=== PATIENT | male | born 1955 | race Caucasian/White ===

== ENCOUNTER → 2019-05-30 12:47 | Outpatient (BNVA) | payer MEDICARE, SELFPAY | PROVIDERS: Family Provider Family Medicine; PCP Family Medicine; Visit Provider Family Medicine | DX: M25.552 Pain in left hip (principal); M54.5 Low back pain; G89.29 Other chronic pain | CPT/HCPCS: 80307; 80373 ==

== ENCOUNTER → 2019-08-16 09:22 | Outpatient (BNVA) | payer MEDICARE, SELFPAY | PROVIDERS: Family Provider Family Medicine; PCP Family Medicine; Referring Provider Family Medicine; Visit Provider Anesthesiology Pain Medicine | DX: G89.29 Other chronic pain (principal); M47.816 Spondylosis without myelopathy or radiculopathy, lumbar region; M51.36 Other intervertebral disc degeneration, lumbar region; M25.552 Pain in left hip; Z98.890 Other specified postprocedural states; Z79.891 Long term (current) use of opiate analgesic | CPT/HCPCS: 99204; 99205 ==

== ENCOUNTER → 2019-08-23 09:33 | Outpatient (BNVA) | payer MEDICARE, SELFPAY | PROVIDERS: Family Provider Family Medicine; PCP Family Medicine; Visit Provider Anesthesiology Pain Medicine | DX: G89.29 Other chronic pain (principal); M25.552 Pain in left hip; M54.5 Low back pain | CPT/HCPCS: 20610; 77003; J1030; J2001; J3490 ==

== ENCOUNTER 2019-09-06 12:49 | Outpatient (CLI) | payer MEDICARE, SELFPAY ==
--- NOTE | 2019-09-06 13:00 | MR_ITS ---
WS: [id number] MRI LUMBAR SPINE NONCONTRAST HISTORY: M51.36 Other intervertebral disc degeneration, lumbar region, pain down LEFT leg. COMPARISON: 06/22/2010 TECHNIQUE: Sagittal and axial multisequence imaging is submitted. Advanced degenerative changes in the cervical spine and moderate in the thoracic spine. No signal abn ormality within the cord. Straightening of the normal lumbar lordosis. There is very slight RIGHT convex curvature of the lumba r spine. Advanced degenerative disc disease and degeneration throughout the lumbar spine. Osteophytes fatty me tamorphosis in the vertebral bodies. No fracture. Conus terminates normally at L1. L1-L2: Diffuse osteophytic ridging and disc bulging. Effacement of fat in the LEFT foramen. Mild encr oachment upon the LEFT lateral thecal sac by facet osteophytes. Severe LEFT foraminal stenosis and mi ld on the RIGHT and mild central stenosis. Mild bilateral subarticular recess narrowing. Significant progression since the prior study. L2-L3: Diffuse annular disc bulging and osteophytic ridging. Marked facet and ligamentum flavum hyper trophy. There is near complete effacement of CSF centrally. Severe central and bilateral subarticular recess stenosis and mild bilateral foraminal stenosis. Significant progression since the prior study . L3-L4: Diffuse osteophytic ridging and disc bulging with ligamentum flavum hypertrophy. Moderate cent ral stenosis. Severe bilateral subarticular recess and foraminal stenosis. Moderate progression since the prior study. L4-L5: Diffuse annular disc bulging and osteophytic ridging. Marked facet and ligamentum flavum arthr itis. Disc osteophyte complex extends into the LEFT paracentral and subarticular recess and foramen. New since the prior study. Significant mass effect upon the LEFT lateral thecal sac and displacement of the L5 nerve root. Complete effacement of fat in the LEFT foramen with near complete effacement on the RIGHT. Significant progression of disease. L5-S1: No stenosis. Bilateral renal cysts. MR/MR lumbar spine wo con* [id number] IMPRESSION: 1. Multilevel advanced degenerative changes throughout the lumbar spine and st enoses. Significant progression at multiple levels since 2010. 2. Disc osteophyte complex at L4-5 extends into the LEFT paracentral, subartic ular recess and foramen with significant stenosis. Severe bilateral foraminal s tenosis, LEFT greater than RIGHT. 3. Severe bilateral subarticular recess and foraminal stenosis with moderate c entral stenosis at L3-4. 4. Severe central and bilateral subarticular recess stenosis at L2-3. 5. Severe LEFT foraminal stenosis at L1-2 with mild bilateral subarticular rec ess stenosis.
== END 2019-09-06 12:50 | disposition home or self-care (01) ==
LOC: RADSHAW 12:54
PROVIDERS: PCP Family Medicine; Visit Provider Anesthesiology Pain Medicine
DX: G89.29 Other chronic pain (principal); M25.552 Pain in left hip; M16.12 Unilateral primary osteoarthritis, left hip; M25.562 Pain in left knee; M47.816 Spondylosis without myelopathy or radiculopathy, lumbar region; M51.36 Other intervertebral disc degeneration, lumbar region; Z98.890 Other specified postprocedural states; Z79.891 Long term (current) use of opiate analgesic
CPT/HCPCS: 72148; 99213; 99214

== ENCOUNTER → 2019-09-10 11:04 | Outpatient (BNVA) | payer MEDICARE, SELFPAY | PROVIDERS: PCP Family Medicine; Visit Provider Anesthesiology Pain Medicine | DX: M17.12 Unilateral primary osteoarthritis, left knee (principal) | CPT/HCPCS: 20610; J2001; J7325 ==

== ENCOUNTER → 2019-09-20 10:25 | Outpatient (BNVA) | payer MEDICARE, SELFPAY | PROVIDERS: PCP Family Medicine; Visit Provider Family Medicine | DX: R35.1 Nocturia (principal); Z13.6 Encounter for screening for cardiovascular disorders | CPT/HCPCS: 80053; 80061; 84153; 85025 ==

== ENCOUNTER → 2021-03-15 11:00 | Outpatient (BNVA) | payer MEDICARE, SELFPAY | PROVIDERS: PCP Family Medicine; Visit Provider Family Medicine | DX: R68.82 Decreased libido (principal); R35.1 Nocturia; Z13.6 Encounter for screening for cardiovascular disorders | CPT/HCPCS: 80053; 80061; 84153; 84403; 84443; 85025 ==

== ENCOUNTER → 2021-03-29 10:39 | Outpatient (BNVA) | payer MEDICARE, SELFPAY | PROVIDERS: PCP Family Medicine; Referring Provider Family Medicine; Visit Provider Anesthesiology Pain Medicine | DX: G89.29 Other chronic pain (principal); M51.36 Other intervertebral disc degeneration, lumbar region; M47.816 Spondylosis without myelopathy or radiculopathy, lumbar region; M16.12 Unilateral primary osteoarthritis, left hip; M79.605 Pain in left leg; Z98.890 Other specified postprocedural states; Z79.891 Long term (current) use of opiate analgesic | CPT/HCPCS: 99214 ==

== ENCOUNTER → 2021-04-08 12:31 | Outpatient (BNVA) | payer MEDICARE, SELFPAY | PROVIDERS: PCP Family Medicine; Visit Provider Anesthesiology Pain Medicine | DX: G89.29 Other chronic pain (principal); M51.36 Other intervertebral disc degeneration, lumbar region; M47.816 Spondylosis without myelopathy or radiculopathy, lumbar region; M25.552 Pain in left hip; Z98.890 Other specified postprocedural states; Z79.891 Long term (current) use of opiate analgesic | CPT/HCPCS: 62323; J1040; J3490 ==

== ENCOUNTER → 2021-04-22 10:46 | Outpatient (BNVA) | payer MEDICARE, SELFPAY | PROVIDERS: PCP Family Medicine; Visit Provider Anesthesiology Pain Medicine | DX: G89.29 Other chronic pain (principal); M51.36 Other intervertebral disc degeneration, lumbar region; M47.816 Spondylosis without myelopathy or radiculopathy, lumbar region; M16.12 Unilateral primary osteoarthritis, left hip; M79.605 Pain in left leg; Z98.890 Other specified postprocedural states; Z79.891 Long term (current) use of opiate analgesic | CPT/HCPCS: 99214 ==

== ENCOUNTER → 2021-09-20 09:13 | Outpatient (BNVA) | payer MEDICARE, SELFPAY | PROVIDERS: PCP Family Medicine; Visit Provider Family Medicine | DX: G89.29 Other chronic pain (principal); M25.552 Pain in left hip; R06.00 Dyspnea, unspecified; M47.816 Spondylosis without myelopathy or radiculopathy, lumbar region; R53.83 Other fatigue; E78.5 Hyperlipidemia, unspecified | CPT/HCPCS: 80048 ==

== ENCOUNTER → 2022-03-21 09:30 | Outpatient (BNVA) | payer MEDICARE, SELFPAY | PROVIDERS: PCP Family Medicine; Visit Provider Family Medicine | DX: E78.5 Hyperlipidemia, unspecified (principal); R35.1 Nocturia; R06.00 Dyspnea, unspecified; M25.552 Pain in left hip | CPT/HCPCS: 80053; 80061; 84153; 85025 ==

== ENCOUNTER → 2022-09-19 10:16 | Outpatient (BNVA) | payer MEDICARE, SELFPAY | PROVIDERS: PCP Family Medicine; Visit Provider Family Medicine | DX: E78.5 Hyperlipidemia, unspecified (principal); M25.552 Pain in left hip | CPT/HCPCS: 80053 ==

== ENCOUNTER 2022-11-28 21:09 | Emergency (ER) | payer MEDICARE, SELFPAY ==
[2022-11-28 21:13] VITALS: BP 97/53; PULSE 80; RESP 16; TEMP 36.4; O2SAT 93; BMI 26.6
--- NOTE | 2022-11-28 21:46 | CTR_ITS ---
PROCEDURE INFORMATION: Exam: CT Head Without Contrast Exam date and time: 11/28/2022 10:55 PM Age: 67 years old Clinical indication: Injury or trauma; Blunt trauma (contusions or hematomas); Consciousness not specified; Injury date: Today; Injury details: Fall from roof top , patient is alert but unsure whether he lost consciousness, denies head and neck pain, but complains of right rib pain as well as right hip pain TECHNIQUE: Imaging protocol: Computed tomography of the head without contrast. Radiation optimization: All CT scans at this facility use at least one of these dose optimization techniques: automated exposure control; mA and/or kV adjustment per patient size (includes targeted exams where dose is matched to clinical indication); or iterative reconstruction. REPORTING DATA: Count of CT and Cardiac NM exams in prior 12 months: This patient has received 0 known CTs and 0 known cardiac nuclear medicine studies in the 12 months prior to the current study. COMPARISON: No relevant prior studies available. RADIATION DOSE METRICS: Total DLP (mGy-cm): 1168.58 FINDINGS: Brain: No acute intracranial hemorrhage, abnormal extra-axial fluid collection, mass effect, or midline shift. Minimal to mild periventricular and subcortical white matter hypodensities compatible with changes of minimal to mild burden chronic small-vessel disease. Cerebral ventricles: The ventricular system is within normal limits of variation for the patient's age. Paranasal sinuses: There is no acute sinusitis. Mastoid air cells: Visualized mastoid air cells are well aerated. Bones/joints: No acute fracture. Soft tissues: Grossly unremarkable. Vasculature: Atheromatous changes are seen within the bilateral carotid siphons. Other findings: . CT/CT head wo con* [id number] IMPRESSION: 1. No acute intracranial findings. 2. Other chronic/incidental findings as described above.
--- NOTE | 2022-11-28 21:46 | CTR_ITS ---
PROCEDURE INFORMATION: Exam: CT Cervical Spine Without Contrast Exam date and time: 11/28/2022 10:58 PM Age: 67 years old Clinical indication: Injury or trauma; Blunt trauma; Injury details: Fall from roof top , patient is alert but unsure whether he lost consciousness, denies head and neck pain, but complains of right rib pain as well as right hip pain TECHNIQUE: Imaging protocol: Computed tomography of the cervical spine without contrast. Radiation optimization: All CT scans at this facility use at least one of these dose optimization techniques: automated exposure control; mA and/or kV adjustment per patient size (includes targeted exams where dose is matched to clinical indication); or iterative reconstruction. REPORTING DATA: Count of CT and Cardiac NM exams in prior 12 months: This patient has received 0 known CTs and 0 known cardiac nuclear medicine studies in the 12 months prior to the current study. COMPARISON: CT head wo con* [id number] 11/28/2022 10:55 PM RADIATION DOSE METRICS: Total DLP (mGy-cm): 198.07 FINDINGS: Bones/joints: Craniocervical articulation is normal. There is normal vertebral body alignment. Severe diffuse disc space narrowing. There are normal vertebral body heights. The dens is intact. The lateral masses of C1 are symmetric. No fracture. Prevertebral and retropharyngeal spaces: Atlantodental interval and prevertebral soft tissues are normal. Lungs: Lung apices are normal. Soft tissues: Unremarkable. CT/CT cervical spin wo con* [id number] IMPRESSION: No fracture.
--- NOTE | 2022-11-28 21:46 | CTR_ITS ---
PROCEDURE INFORMATION: Exam: CT Chest With Contrast; Diagnostic Exam date and time: 11/28/2022 11:03 PM Age: 67 years old Clinical indication: Injury or trauma; Rlq; Blunt trauma (contusions or hematomas); Injury details: Fall from roof top , patient is alert but unsure whether he lost consciousness, denies head and neck pain, but complains of right rib pain as well as right hip pain TECHNIQUE: Imaging protocol: Diagnostic computed tomography of the chest with contrast. Radiation optimization: All CT scans at this facility use at least one of these dose optimization techniques: automated exposure control; mA and/or kV adjustment per patient size (includes targeted exams where dose is matched to clinical indication); or iterative reconstruction. Contrast material: OMNI 350; Contrast volume: 100 ml; Contrast route: INTRAVENOUS (IV); REPORTING DATA: Count of CT and Cardiac NM exams in prior 12 months: This patient has received 0 known CTs and 0 known cardiac nuclear medicine studies in the 12 months prior to the current study. COMPARISON: CT abdomen pelvis w con* [id number] 09/15/2018 8:22 PM RADIATION DOSE METRICS: Total DLP (mGy-cm): 1307.04 FINDINGS: Lungs: There is bibasilar atelectasis. Pleural spaces: Unremarkable. No pneumothorax. No pleural effusion. Heart: Unremarkable. No cardiomegaly. No pericardial effusion. Lymph nodes: Unremarkable. No enlarged lymph nodes. Vasculature: Unremarkable. No aortic aneurysm. Bones/joints: Fracture fixation hardware left clavicle. Right posterior 8th rib fracture. Soft tissues: Unremarkable. PROCEDURE INFORMATION: Exam: CT Abdomen And Pelvis With Contrast Exam date and time: 11/28/2022 11:03 PM Age: 67 years old Clinical indication: Injury or trauma; Rlq; Blunt trauma (contusions or hematomas); Injury details: Fall from roof top , patient is alert but unsure whether he lost consciousness, denies head and neck pain, but complains of right rib pain as well as right hip pain TECHNIQUE: Imaging protocol: Computed tomography of the abdomen and pelvis with contrast. Radiation optimization: All CT scans at this facility use at least one of these dose optimization techniques: automated exposure control; mA and/or kV adjustment per patient size (includes targeted exams where dose is matched to clinical indication); or iterative reconstruction. Contrast material: OMNI 350; Contrast volume: 100 ml; Contrast route: INTRAVENOUS (IV); REPORTING DATA: Count of CT and Cardiac NM exams in prior 12 months: This patient has received 0 known CTs and 0 known cardiac nuclear medicine studies in the 12 months prior to the current study. COMPARISON: CT abdomen pelvis w con* [id number] 09/15/2018 8:22 PM RADIATION DOSE METRICS: Total DLP (mGy-cm): 1307.04 FINDINGS: Lungs: The lung bases are clear. No effusion Liver: There are multiple hepatic calcified granulomata consistent with previous granulomatous disease. Gallbladder and bile ducts: No wall thickening, pericholecystic fluid or stones. Pancreas: Normal. No ductal dilation. Spleen: There are multiple calcified splenic granulomata . Adrenal glands: Normal. No mass. Kidneys and ureters: There are multiple bilateral renal cysts, largest measures 2.9 cm. New perigraft Stomach and bowel: Diverticulosis without diverticulitis. Appendix: No evidence of appendicitis. Intraperitoneal space: Unremarkable. No free air. No significant fluid collection. Vasculature: Unremarkable. No abdominal aortic aneurysm. Lymph nodes: Unremarkable. No enlarged lymph nodes. Urinary bladder: Unremarkable as visualized. Reproductive: Unremarkable as visualized. Bones/joints: Left hip arthroplasty is in place. No evidence of loosening. Left superior pubic ramus fracture. Comminuted right inferior pubic ramus fracture. Severe diffuse disc space narrowing. Comminuted right acetabular fracture with mild acetabular protrusion into the pelvis and small associated pelvic sidewall hematoma. Fracture involves the anterior and posterior isaac of the acetabulum No active hemorrhage. Comminuted, minimally displaced and angulated right iliac wing fracture. Soft tissues: Unremarkable. CT/CT chest abdpel w/*[id number] IMPRESSION: Right posterior 8th rib fracture. IMPRESSION: 1. Comminuted right acetabular fracture with mild acetabular protrusion into the pelvis and small associated pelvic sidewall hematoma. Fracture involves the anterior and posterior isaac of the acetabulum No active hemorrhage. 2. Diverticulosis without diverticulitis. 3. Left superior pubic ramus fracture. 4. Comminuted right inferior pubic ramus fracture. 5. Comminuted, minimally displaced and angulated right iliac wing fracture. COMMENTS: Consistent with the [employer]'s Incidental Findings Committee white paper (J Am Fiona Radiol 2018): Any incidental renal lesion less than 1 cm or classified as too small to characterize, or any incidental cystic renal lesion characterized as simple-appearing, is likely benign. No follow-up imaging is recommended for these lesions per consensus recommendations based on imaging criteria.
[2022-11-28 22:03] LABS: Basophils # 0.1 10^3/uL (0.0-0.1); Basophils % 0.3 %; Hematocrit 39.4 % (37-53); Lymphocytes % 4.4 %; Mean Corpuscular HGB Conc 33.8 g/dL (30-55); Mean Corpuscular Hemoglobin 31.4 pg (27-33); Mean Corpuscular Volume 92.9 fl (82-101); Mean Platelet Volume 9.1 fL (7.4-10.4); Monocytes # 1.3 10^3/uL (0.2-0.9); Monocytes % 5.7 %; Neutrophils # 19.56 10^3/uL (1.8-7.7); Neutrophils % 88.6 %; Nucleated Red Blood Cells % 0 %; Platelet Count 221 10^3/cmm (157-399); Red Blood Count 4.24 10^6/uL (3.85-5.65); Red Cell Distribution Width 12.8 % (12.1-15.1); White Blood Count 22.08 10^3/uL (3.29-11.43)
[2022-11-28 22:24] LABS: Alanine Aminotransferase 136 U/L (0-41); Albumin Level 4.6 g/dL (3.5-5.2); Alkaline Phosphatase 83 U/L (40-130); Aspartate Amino Transferase 185 U/L (0-40); Blood Urea Nitrogen 34 mg/dL (8-23); Calcium 9.2 mg/dL (8.5-10.5); Carbon Dioxide 25 mmol/L (22-29); Chloride 104 mmol/L (98-107); Globulin 2.8 g/dL (1.3-4.6); Glomerular Filtration Rate 50.2 mL/min (90-130); Glucose 158 mg/dL (65-115); Osmolality Calculated 301 mOsm/kg (285-295); Sodium 140 mmol/L (136-145); Total Bilirubin 0.5 mg/dL (0.15-1.2); Total Protein 7.4 g/dL (6.6-8.7)
[2022-11-28 22:27] VITALS: BP 109/73; PULSE 76; O2SAT 100
[2022-11-28 22:31] VITALS: BP 113/69; PULSE 75; O2SAT 98
--- NOTE | 2022-11-28 22:32 | W.ED.FALL ---
Documented by User: Skinny Hernandez MD 11/29/22 10:50 HPI - Fall General: Chief Complaint: Fall Stated Complaint: pain in right hip, right lower back Time Seen by Provider: 11/28/22 21:31 History of Present Illness: 67-year-old male brought to emergency room via EMS after falling from a roof top. Patient said that he fell from approximately 9 feet landing on his back. Patient further reveals that he passed out for about 30 minutes and was found by his . Upon present emergency room patient denies any headache or neck pain but patient was placed in c-collar by EMS. Patient is complaining of right upper quadrant pain and rib cage pain with the right lower back pain and hip pain. He described the pain as sharp sensation with severity of 7 out of 10 especially with palpation and deep breathing. She denies any shortness of breath, cough, coughing up blood or vomiting blood. No loss of bowel or bladder dysfunction at this time. Denies any blurry vision or change in vision. No numbness or tingling to the upper or lower extremities. Fall from: from height (distance) (9 ft) Fall witnessed: no Loss of consciousness: Yes Length of LOC: minutes(s) (unsure ) Location of injury: chest, back and abdomen Associated symptoms-after fall: Reports chest pain; Denies difficulty walking, headache(s), lightheadedness or neck pain Review of Systems General: Reports: 10 or more systems reviewed and unremarkable except in HPI and below Card: Reports: chest pain and other (Rib cage pain on the right side); Denies: palpitations, irregular heart rhythm, edema, swelling of feet/ankles or lightheadedness Musc: Reports: back pain, joint pain and other (Right hip pain); Denies: neck pain Skin/Breast: Denies: rash, pruritus or erythema Neuro: Denies: headache(s), numbness in extremities, weakness in extremities, sensory changes, lack of coordination, difficulty walking, behavioral changes, Slurred speech present, difficulty communicating thoughts or seizure-like activity Prudencio/Lymph: Reports: other (Denies any blood thinner medication); Denies: easy bruising, easy bleeding, petechiae or purpura [facility] ED PFSH: Medical History Chronic low back pain History of broken collarbone Left hip pain Surgical History H/O knee surgery H/O total knee replacement Left History of back surgery History of left hip replacement Hx of arthroscopy of left knee Social History Smoking and tobacco status: never smoked Alcohol intake: never Substance/Drug Use: never Lives independently: Yes Physical Exam Const: COMMON NORMALS: no acute distress, average body habitus, patient oriented x3, no limitations, healthy appearing, alert and well nourished Neck/C-Spine: COMMON NORMALS: no JVD GENERAL: Yes normal visual inspection, Yes trachea midline, No anterior neck swelling, No lymphadenopathy, No tracheal deviation and No tracheostomy present CERVICAL SPINE: Yes normal cervical lordosis, No step off deformity, No Paracervical muscle tenderness, Yes collar present and No Cervical spine scars present Chest: COMMONS NORMALS: normal inspection of the chest CHEST: No mass, Yes tenderness rib; no clavicular xxx and no sternal xxx, No Ecchymosis present, No wounds and No Surgical scars present (Chest) Resp: COMMON NORMALS: normal respiratory effort, No retractions, No use of accessory muscles, clear to auscultation bilaterally and percussion normal EFFORT & INSPECTION: Yes able to speak in complete sentences AUSCULTATION: clear to auscultation bilaterally PERCUSSION: percussion normal Cardio: COMMON NORMALS: no JVD, regular rate, regular rhythm, S1 normal heart sound present, S2 normal heart sound present, No gallops present (Cardio), No clicks present (Cardio), No murmurs present (Cardio), No rub (Cardio) and Peripheral pulses 2+ throughout RATE: regular rate RHYTHM: regular rhythm HEART SOUNDS: S1 normal heart sound present and S2 normal heart sound present PERIPHERAL PULSES: Peripheral pulses 2+ throughout GI: COMMON NORMALS: Soft to palpation and No hepatosplenomegaly present PALPATION: Yes Soft to palpation, Yes Tenderness to palpation present (GI) Details: RUQ, Yes No hepatosplenomegaly present, No Hepatosplenomegaly present, No Hepatomegaly present and No Splenomegaly present : COMMON NORMALS: Yes no CVA tenderness BLADDER/KIDNEY EXAM: Yes no CVA tenderness Back/Pelvis: COMMON NORMALS: no CVA tenderness, thoracic and lumbar spine normal to inspection, no thoracic nor lumbar tenderness, thoraco-lumbar ROM normal and straight leg raise negative bilaterally PELVIS: Yes buttocks normal, Yes tenderness over symphysis pubis and No iliac crest elevation Extremity: COMMON NORMALS: normal to inspection RIGHT LOWER EXTREMITY: Yes hip joint Right hip: Yes inspection, Yes palpation (Some palpation on the lateral aspect of the right hip but no obvious deform), Yes ROM (Some pain with range of motion but no significant rotation or shortness of ) and Yes neurovascular exam (Patient with intact sensation and palpable pulses from the femoral all the ) Neuro: COMMON NORMALS: patient oriented x3 SENSORIUM/ORIENTATION: Yes alert Skin: COMMON NORMALS: no rashes or lesions noted, no wounds, turgor normal, no jaundice, no petechiae and no mottling GENERAL SKIN EXAM: no rashes or lesions noted and turgor normal Course Vital Signs: Vital signs: Vital Signs Temperature 97.6 F 11/28/22 21:13 Pulse Rate 72 11/29/22 02:10 Respiratory Rate 15 11/29/22 00:30 Blood Pressure 121/70 11/29/22 02:10 Pulse Oximetry 96 11/29/22 02:10 Oxygen Delivery Me thod Nasal Cannula 11/29/22 01:01 Oxygen Flow Rate 2 11/29/22 01:01 MDM - Fall Medical Decision Making Patient made comfortable emergency room. C-collar in place and patient was taken to CT for CT head neck chest abdomen pelvis. He was given IV pain medication. Care transferred to pending CT results. CT head reviewed and no acute finding on CT head. Differential Diagnosis Likely dislocation of shoulder region, fracture of wrist, compression fracture, concussion with loss of consciousness and concussion without loss of consciousness Lab Data 11/28/22 21:57 11/28/22 21:57 Radiology Impressions Cervical Spine CT 11/28/22 21:46 IMPRESSION: No fracture. Chest/Abdomen/Pelvis CT 11/28/22 21:46 IMPRESSION: Right posterior 8th rib fracture. IMPRESSION: 1. Comminuted right acetabular fracture with mild acetabular protrusion into the pelvis and small associated pelvic sidewall hematoma. Fracture involves the anterior and posterior isaac of the acetabulum No active hemorrhage. 2. Diverticulosis without diverticulitis. 3. Left superior pubic ramus fracture. 4. Comminuted right inferior pubic ramus fracture. 5. Comminuted, minimally displaced and angulated right iliac wing fracture. COMMENTS: Consistent with the [employer]'s Incidental Findings Committee white paper (J Am Fiona Radiol 2018): Any incidental renal lesion less than 1 cm or classified as too small to characterize, or any incidental cystic renal lesion characterized as simple-appearing, is likely benign. No follow-up imaging is recommended for these lesions per consensus recommendations based on imaging criteria. Head CT 11/28/22 21:46 IMPRESSION: 1. No acute intracranial findings. 2. Other chronic/incidental findings as described above. Laboratory Results WBC 22.08 10^3/uL (3.29-11.43) H 11/28/22 21:57 RBC 4.24 10^6/uL (3.85-5.65) 11/28/22 21:57 Hgb 13.30 g/dL (11.27-16.99) 11/28/22 21:57 Hct 39.4 % (37-53) 11/28/22 21:57 MCV 92.9 fl (82-101) 11/28/22 21:57 MCH 31.4 pg (27-33) 11/28/22 21:57 MCHC 33.8 g/dL (30-55) 11/28/22 21:57 RDW 12.8 % (12.1-15.1) 11/28/22 21:57 Plt Count 221 10^3/cmm (157-399) 11/28/22 21:57 MPV 9.1 fL (7.4-10.4) 11/28/22 21:57 Neut % (Auto) 88.6 % 11/28/22 21:57 Lymph % (Auto) 4.4 % 11/28/22 21:57 [place] % (Auto) 5.7 % 11/28/22 21:57 Eos % (Auto) 0.0 % 11/28/22 21:57 Baso % (Auto) 0.3 % 11/28/22 21:57 Neut # (Auto) 19.56 10^3/uL (1.8-7.7) H 11/28/22 21:57 Lymph # (Auto) 1.0 10^3/uL (0.8-4.8) 11/28/22 21:57 [place] # (Auto) 1.3 10^3/uL (0.2-0.9) H 11/28/22 21:57 Eos # (Auto) 0.0 10^3/uL (0.0-0.8) 11/28/22 21:57 Baso # (Auto) 0.1 10^3/uL (0.0-0.1) 11/28/22 21:57 Nucleated RBC % (auto) 0 % 11/28/22 21:57 Nucleated RBCs # 0.0 /100WBC 11/28/22 21:57 PT 14.60 SECONDS (12.1-14.9) 11/29/22 00:50 INR 1.10 (0.8-1.2) 11/29/22 00:50 APTT 27.9 SECONDS (23.9-36.7) 11/29/22 00:50 Sodium 140 mmol/L (136-145) 11/28/22 21:57 Potassium 5.0 mmol/L (3.5-5.1) 11/28/22 21:57 Chloride 104 mmol/L (98-107) 11/28/22 21:57 Carbon Dioxide 25 mmol/L (22-29) 11/28/22 21:57 Anion Gap 16.0 (5-19) 11/28/22 21:57 BUN 34 mg/dL (8-23) H 11/28/22 21:57 Creatinine 1.4 mg/dL (0.7-1.2) H 11/28/22 21:57 GFR Calculation 50.2 mL/min (90-130) L 11/28/22 21:57 Glucose 158 mg/dL (65-115) H 11/28/22 21:57 Calculated Osmolality 301 mOsm/kg (285-295) H 11/28/22 21:57 Calcium 9.2 mg/dL (8.5-10.5) 11/28/22 21:57 Total Bilirubin 0.5 mg/dL (0.15-1.2) 11/28/22 21:57 AST 185 U/L (0-40) H 11/28/22 21:57 ALT 136 U/L (0-41) H 11/28/22 21:57 Alkaline Phosphatase 83 U/L (40-130) 11/28/22 21:57 Total Protein 7.4 g/dL (6.6-8.7) 11/28/22 21:57 Albumin 4.6 g/dL (3.5-5.2) 11/28/22 21:57 Globulin 2.8 g/dL (1.3-4.6) 11/28/22 21:57 Blood Type B Positive 11/29/22 00:50 Rho(D) Type Positive 11/29/22 00:50 Antibody Screen Negative 11/29/22 00:50 XR interpretation done by ED provider, pending radiology final review Discharge Plan Discharge Patient Disposition: Xfer Short-Term Hosp Clinical Impression: Trauma Multiple closed pelvic fractures with disruption of pelvic la posta Qualifiers: Encounter type: initial encounter Qualified Code(s): S32.810A - Multiple fractures of pelvis with stable disruption of pelvic ring, initial encounter for closed fracture Closed rib fracture Qualifiers: Encounter type: initial encounter Rib fracture type: single rib Laterality: right Qualified Code(s): S22.31XA - Fracture of one rib, right side, initial encounter for closed fracture Condition: Stable Referrals: Casie Marlow DO [Primary Care Provider] - Coding Level of Care Code ED Medical Affairs Leader for Chg Fwd Documented by User: Joao Enriquez DO 11/29/22 01:45 HPI - Fall General: Chief Complaint: Fall Stated Complaint: pain in right hip, right lower back Time Seen by Provider: 11/28/22 21:31 PFSH ED PFSH: Medical History Chronic low back pain History of broken collarbone Left hip pain Surgical History H/O knee surgery H/O total knee replacement Left History of back surgery History of left hip replacement Hx of arthroscopy of left knee Social History Smoking and tobacco status: never smoked Alcohol intake: never Substance/Drug Use: never Lives independently: Yes Course Vital Signs: Vital signs: Vital Signs Temperature 97.6 F 11/28/22 21:13 Pulse Rate 72 11/29/22 02:10 Respiratory Rate 15 11/29/22 00:30 Blood Pressure 121/70 11/29/22 02:10 Pulse Oximetry 96 11/29/22 02:10 Oxygen Delivery Me thod Nasal Cannula 11/29/22 01:01 Oxygen Flow Rate 2 11/29/22 01:01 MDM - Fall Medical Decision Making Patient made comfortable emergency room. C-collar in place and patient was taken to CT for CT head neck chest abdomen pelvis. He was given IV pain medication. Care transferred to pending CT results. CT head reviewed and no acute finding on CT head. Upon receiving the patient in transfer CT scan of the chest abdomen pelvis came back with multiple fractures. [facility] was called and Dr. Mars the ER doc it was an accepting physician. Lab Data 11/28/22 21:57 11/28/22 21:57 Radiology Impressions Cervical Spine CT 11/28/22 21:46 IMPRESSION: No fracture. Chest/Abdomen/Pelvis CT 11/28/22 21:46 IMPRESSION: Right posterior 8th rib fracture. IMPRESSION: 1. Comminuted right acetabular fracture with mild acetabular protrusion into the pelvis and small associated pelvic sidewall hematoma. Fracture involves the anterior and posterior isaac of the acetabulum No active hemorrhage. 2. Diverticulosis without diverticulitis. 3. Left superior pubic ramus fracture. 4. Comminuted right inferior pubic ramus fracture. 5. Comminuted, minimally displaced and angulated right iliac wing fracture. COMMENTS: Consistent with the [employer]'s Incidental Findings Committee white paper (J Am Fiona Radiol 2018): Any incidental renal lesion less than 1 cm or classified as too small to characterize, or any incidental cystic renal lesion characterized as simple-appearing, is likely benign. No follow-up imaging is recommended for these lesions per consensus recommendations based on imaging criteria. Head CT 11/28/22 21:46 IMPRESSION: 1. No acute intracranial findings. 2. Other chronic/incidental findings as described above. Laboratory Results WBC 22.08 10^3/uL (3.29-11.43) H 11/28/22 21:57 RBC 4.24 10^6/uL (3.85-5.65) 11/28/22 21:57 Hgb 13.30 g/dL (11.27-16.99) 11/28/22 21:57 Hct 39.4 % (37-53) 11/28/22 21:57 MCV 92.9 fl (82-101) 11/28/22 21:57 MCH 31.4 pg (27-33) 11/28/22 21:57 MCHC 33.8 g/dL (30-55) 11/28/22 21:57 RDW 12.8 % (12.1-15.1) 11/28/22 21:57 Plt Count 221 10^3/cmm (157-399) 11/28/22 21:57 MPV 9.1 fL (7.4-10.4) 11/28/22 21:57 Neut % (Auto) 88.6 % 11/28/22 21:57 Lymph % (Auto) 4.4 % 11/28/22 21:57 [place] % (Auto) 5.7 % 11/28/22 21:57 Eos % (Auto) 0.0 % 11/28/22 21:57 Baso % (Auto) 0.3 % 11/28/22 21:57 Neut # (Auto) 19.56 10^3/uL (1.8-7.7) H 11/28/22 21:57 Lymph # (Auto) 1.0 10^3/uL (0.8-4.8) 11/28/22 21:57 [place] # (Auto) 1.3 10^3/uL (0.2-0.9) H 11/28/22 21:57 Eos # (Auto) 0.0 10^3/uL (0.0-0.8) 11/28/22 21:57 Baso # (Auto) 0.1 10^3/uL (0.0-0.1) 11/28/22 21:57 Nucleated RBC % (auto) 0 % 11/28/22 21:57 Nucleated RBCs # 0.0 /100WBC 11/28/22 21:57 PT 14.60 SECONDS (12.1-14.9) 11/29/22 00:50 INR 1.10 (0.8-1.2) 11/29/22 00:50 APTT 27.9 SECONDS (23.9-36.7) 11/29/22 00:50 Sodium 140 mmol/L (136-145) 11/28/22 21:57 Potassium 5.0 mmol/L (3.5-5.1) 11/28/22 21:57 Chloride 104 mmol/L (98-107) 11/28/22 21:57 Carbon Dioxide 25 mmol/L (22-29) 11/28/22 21:57 Anion Gap 16.0 (5-19) 11/28/22 21:57 BUN 34 mg/dL (8-23) H 11/28/22 21:57 Creatinine 1.4 mg/dL (0.7-1.2) H 11/28/22 21:57 GFR Calculation 50.2 mL/min (90-130) L 11/28/22 21:57 Glucose 158 mg/dL (65-115) H 11/28/22 21:57 Calculated Osmolality 301 mOsm/kg (285-295) H 11/28/22 21:57 Calcium 9.2 mg/dL (8.5-10.5) 11/28/22 21:57 Total Bilirubin 0.5 mg/dL (0.15-1.2) 11/28/22 21:57 AST 185 U/L (0-40) H 11/28/22 21:57 ALT 136 U/L (0-41) H 11/28/22 21:57 Alkaline Phosphatase 83 U/L (40-130) 11/28/22 21:57 Total Protein 7.4 g/dL (6.6-8.7) 11/28/22 21:57 Albumin 4.6 g/dL (3.5-5.2) 11/28/22 21:57 Globulin 2.8 g/dL (1.3-4.6) 11/28/22 21:57 Blood Type B Positive 11/29/22 00:50 Rho(D) Type Positive 11/29/22 00:50 Antibody Screen Negative 11/29/22 00:50 All radiology interpretation(s) finalized by discharge Discharge Plan Discharge Patient Disposition: Xfer Short-Term Hosp Clinical Impression: Trauma Multiple closed pelvic fractures with disruption of pelvic la post[place] Qualifiers: Encounter type: initial encounter Qualified Code(s): S32.810A - Multiple fractures of pelvis with stable disruption of pelvic ring, initial encounter for closed fracture Closed rib fracture Qualifiers: Encounter type: initial encounter Rib fracture type: single rib Laterality: right Qualified Code(s): S22.31XA - Fracture of one rib, right side, initial encounter for closed fracture Condition: Stable Referrals: Casie Marlow DO [Primary Care Provider] - Coding Level of Care Code ED Medical Affairs Leader for Skyler Roberson
[2022-11-28 22:38] VITALS: RESP 24; O2SAT 94
[2022-11-28] MEDS: HYDROmorphone 1 mg/mL INJ 1 mL IVP (22:38)
[2022-11-28] MEDS: iohexol 350 mg/mL 500 mL Btl (per mL) IV (23:13)
[2022-11-28 23:16] VITALS: BP 123/79; PULSE 79; RESP 20; O2SAT 99
[2022-11-28 23:30] VITALS: BP 132/92; PULSE 77; O2SAT 99
[2022-11-29] VITALS (13 sets, daily range): BP systolic 112–135; BP diastolic 59–82; PULSE 67–79; RESP 15–17; O2SAT 88–98
[2022-11-29 01:08] LABS: Partial Thromboplastin Time 27.9 SECONDS (23.9-36.7)
== END 2022-11-29 02:40 | disposition short-term general hospital (02) ==
PROVIDERS: Emergency Provider Family Medicine; PCP Family Medicine
DX: S32.810A Multiple fractures of pelvis with stable disruption of pelvic ring, initial encounter for closed fracture (principal); S22.31XA Fracture of one rib, right side, initial encounter for closed fracture; Z96.642 Presence of left artificial hip joint; W13.2XXA Fall from, out of or through roof, initial encounter
CPT/HCPCS: 36415; 70450; 71260; 72125; 74177; 80053; 85025; 85610; 85730; 86850; 86900; 96374; 99285; J1170; Q9967

== ENCOUNTER → 2023-04-04 10:59 | Outpatient (BNVA) | payer MEDICARE, SELFPAY | PROVIDERS: PCP Family Medicine; Visit Provider Family Medicine | DX: E78.5 Hyperlipidemia, unspecified (principal); R35.1 Nocturia; F32.A Depression, unspecified | CPT/HCPCS: 80053; 84153 ==

== ENCOUNTER → 2023-10-11 10:26 | Outpatient (BNVA) | payer MEDICARE, SELFPAY | PROVIDERS: PCP Family Medicine; Visit Provider Family Medicine Adult Medicine | DX: E78.5 Hyperlipidemia, unspecified (principal); M15.9 Polyosteoarthritis, unspecified | CPT/HCPCS: 80048; 80061 ==

== ENCOUNTER → 2024-09-19 10:38 | Outpatient (BNVA) | payer MEDICARE, SELFPAY | PROVIDERS: PCP Family Medicine; Visit Provider Family Medicine | DX: E78.5 Hyperlipidemia, unspecified (principal); N18.2 Chronic kidney disease, stage 2 (mild); Z11.59 Encounter for screening for other viral diseases; M15.9 Polyosteoarthritis, unspecified | CPT/HCPCS: 80053; 80061; 84439; 84443; 85025; 86803 ==